=== PATIENT | female | born 1985 | race Two or more races ===

== ENCOUNTER 2017-05-11 16:09 | Emergency (ER) | payer MEDICAID ==
[~2017-05-11] VITALS: Ht 167.6 cm; Wt 44.5 kg
[2017-05-11 17:14] VITALS: BP 123/84
[2017-05-11] MEDS ORDERED: MORPHINE SULFATE 4 MG/ML SYRG IM ONE (17:30)
[2017-05-11] MEDS ORDERED: ONDANSETRON HCL 4 MG/2 ML VIAL IM ONE (17:30)
== END 2017-05-11 18:23 | disposition home or self-care (01) ==
LOC: ER 16:13
DX: M79.1 Myalgia (principal); J45.909 Unspecified asthma, uncomplicated; G89.4 Chronic pain syndrome; F17.210 Nicotine dependence, cigarettes, uncomplicated; Z86.73 Personal history of transient ischemic attack (TIA), and cerebral infarction without residual deficits; Z88.8 Allergy status to other drugs, medicaments and biological substances; Z91.041 Radiographic dye allergy status
CPT/HCPCS: 96372; 99284; J2270; J2405